=== PATIENT | female | born 1985 | race Caucasian/White ===

== ENCOUNTER 2020-04-17 01:05 | Emergency (ER) | payer OTHER ==
[2020-04-17 01:35] VITALS: BP 120/84; PULSE 76; RESP 16; TEMP 98.5
[2020-04-17] MEDS ORDERED: HYDROcodone/APAP 5-325MG 1 EACH TAB PO STA (02:03)
--- NOTE | 2020-04-17 02:03 | ED ---
ENT HPI - General Chief complaint: ENT Stated complaint: Mouth Pain Time Seen by Provider: 04/17/20 01:41 Source: patient Mode of arrival: ambulatory Limitations: no limitations - History of Present Illness Initial comments: Patient is a 34-year-old female presenting to emergency Department with complaints of right-sided dental pain and increasing over the past 2 days. Patient states she had some cavities filled a couple months ago on the right lower side and states they have been causing her intermittent pain however it has not been this severe. She denies any fever, chills no nausea or vomiting. She has had no facial swelling. She states she's tried ibuprofen which seemed to help in the beginning but today it has not providing any relief. She states she is not able to get into her dentist until after the weekend. She denies being . She has no further complaints. Upon arrival to the ER vitals are stable. - Related Data Previous Rx's Medication Instructions Recorded Hydrocodone/Acetaminophen [[place] 1 tab PO Q6HR PRN #10 tab 04/17/20 5-325] Penicillin V Potassium [Pen Vee K] 500 mg PO QID 7 Days #28 tablet 04/17/20 Allergies Allergy/AdvReac Type Severity Reaction Status Date / Time No Known Allergies Allergy Verified 04/17/20 01:35 Review of Systems ROS Statement: Those systems with pertinent positive or pertinent negative responses have been documented in the HPI. ROS Other: All systems not noted in ROS Statement are negative. Past Medical History Past Medical History: No Reported History History of Any Multi-Drug Resistant Organisms: None Reported Additional Past Surgical History / Comment(s): d and c Past Psychological History: No Psychological Hx Reported Smoking Status: Current every day smoker Past Alcohol Use History: None Reported Past Drug Use History: Marijuana General Exam - General Exam Comments Initial Comments: GENERAL: Patient is well-developed and well-nourished. Patient is nontoxic and in no acute distress. HEAD: Atraumatic, normocephalic. EYES: Pupils equal round and reactive to light, extraocular movements intact, sclera anicteric, conjunctiva are normal. Eyelids were unremarkable. ENT: TMs normal, nares patent, oropharynx clear without exudates. Moist mucous membranes. I see no signs of dental abscess, no erythema of the gumline. NECK: Normal range of motion, supple without lymphadenopathy or JVD. LUNGS: Unlabored respirations. Breath sounds clear to auscultation bilaterally and equal. No wheezes rales or rhonchi. HEART: Regular rate and rhythm without murmurs, rubs or gallops. ABDOMEN: Soft, nontender, normoactive bowel sounds. No guarding, no rebound. No masses appreciated. : Deferred MUSCULOSKELETAL: Normal extremities with adequate strength and normal range of motion, no pitting or edema. No clubbing or cyanosis. NEUROLOGICAL: Patient is alert and oriented x 3. Motor and sensory are also intact. Cranial nerves II through XII grossly intact. Symmetrical smile. Normal speech, normal gait. PSYCH: Normal mood, normal affect. SKIN: Warm, Dry, normal turgor, no rashes or lesions noted. Limitations: no limitations Course Vital Signs 04/17/20 01:32 Temperature 98.5 F Pulse Rate 76 Respiratory 16 Rate Blood Pressure 120/84 O2 Sat by Pulse 100 Oximetry Medical Decision Making - Medical Decision Making Is a 34-year-old female here for right sided dental pain that been increasing 3 days. No fevers, her vitals are stable. Her exam reveals no evidence of a dental abscess at this time, no facial swelling. Patient will be given one tablet [place] in the ER and a prescription for penicillin to start for possible abscess developing. She'll follow-up with her dentist in the next few days. She is in agreement this plan of care. Disposition Clinical Impression: Pain, dental Disposition: HOME SELF-CARE Condition: Stable Instructions (If sedation given, give patient instructions): Toothache (ED) Additional Instructions: Please return to the Emergency Department if symptoms worsen or any other concerns. Take antibiotic as prescribed, alternate with ibuprofen and norco for severe pain. Follow-up with the dentist as soon as possible. Prescriptions: Hydrocodone/Acetaminophen [[place] 5-325] 1 tab PO Q6HR PRN #10 tab PRN Reason: Pain Penicillin V Potassium [Pen Vee K] 500 mg PO QID 7 Days #28 tablet Is patient prescribed a controlled substance at d/c from ED?: Yes When asked, does pt state using other controlled substances?: No If prescribed controlled substance>3 days was MAPS reviewed?: Prescribed <3 Days If opioid is for acute pain is fill amount 7 days or less?: Yes If Rx opioid, was Start Talking consent form obtained?: Yes Referrals: None,Stated [Primary Care Provider] - 1-2 days
== END 2020-04-17 02:12 | disposition home or self-care (01) ==
LOC: EC 01:05
DX: K08.89 Other specified disorders of teeth and supporting structures (principal); F17.200 Nicotine dependence, unspecified, uncomplicated
CPT/HCPCS: 99282